=== PATIENT | female | born 1965 | race Caucasian/White ===

== ENCOUNTER 2025-01-16 13:16 | Emergency (ER) | payer OTHER ==
[~2025-01-16] VITALS: Ht 167.6 cm; Wt 91.0 kg
[2025-01-16 13:26] VITALS: TEMP 97.9
[2025-01-16 13:50] LABS: GLUCOMETER DEV NAME(LOC) ER.7; GLUCOSE,POINT OF CARE 90 MG/DL (70-110)
[2025-01-16] MEDS: ONDANSETRON HCL 4 MG/2 ML VIAL IVP ONE (15:14)
[2025-01-16] MEDS: KETOROLAC TROMETHAMINE 30 MG/ML VIAL IVP ONE (15:14)
[2025-01-16] MEDS: DEXAMETHASONE SOD PHOS 4 MG/ML 5 ML VIAL IVP ONE (15:14)
[2025-01-16] MEDS: VALPROATE SODIUM 500 MG in DEXTROSE 5%-WATER 50 ML IV ONE (15:14)
[2025-01-16] MEDS: SODIUM CHLORIDE 0.9% 1,000 ML IV ONE (15:14)
[2025-01-16 15:23] LABS: PLATELET COUNT (AUTO) 209 K/uL (150-450); RED BLOOD CELL COUNT(AUTO) 5.82 MIL/uL (4.00-5.20); RED CELL DISTRIBUTION WIDTH 14.1 % (11.5-14.5); WHITE BLOOD COUNT (AUTO) 8.3 K/uL (4.5-11.0)
[2025-01-16 15:31] LABS: CALCIUM, TOTAL 8.6 mg/dL (8.8-10.5); CREATININE 0.56 mg/dL (0.60-1.30); GLOMERULAR FILTR. RATE CALC > 60 mL/min (>60); GLUCOSE,RANDOM 87 mg/dL (70-110); SODIUM SERUM 139 mmol/L (136-145); UREA NITROGEN, BLOOD 11 mg/dL (7-18)
[2025-01-16] MEDS ORDERED: ONDA-104 PO (16:17)
[2025-01-16] MEDS ORDERED: MECL-134 PO (16:17)
[2025-01-16] MEDS ORDERED: ASPI-1590 PO (16:17)
[2025-01-16] MEDS: POTASSIUM CHLORIDE 20 MEQ ER TABLET PO ONE (16:27)
[2025-01-16 16:29] VITALS: BP 141/68; PULSE 63; RESP 16; O2SAT 98
== END 2025-01-16 17:15 | disposition home or self-care (01) ==
LOC: EMS 13:16
DX: G43.909 Migraine, unspecified, not intractable, without status migrainosus (principal); E11.9 Type 2 diabetes mellitus without complications; E78.00 Pure hypercholesterolemia, unspecified; I10 Essential (primary) hypertension; Z90.49 Acquired absence of other specified parts of digestive tract; Z90.710 Acquired absence of both cervix and uterus; Z98.890 Other specified postprocedural states
CPT/HCPCS: 99284; 96365; 96375; 80048; 82962; 85025; 36415; J1885; J1100; J2405; J3490; J7060; J7030